=== PATIENT | male | born 1955 | race Caucasian/White ===

== ENCOUNTER 2017-03-25 03:35 | Inpatient (IN) ==
[2017-03-20 11:21] LABS: MANUAL DIFF NEEDED? NO; URINE MICRO REVIEW NEEDED? NO; URINE SOURCE CLEAN CATCH
[2017-03-20 11:30] LABS: BASO% 0.4 % (0.0-0.8); EOS# 0.22 X1000 (0.0-0.7); EOS% 2.4 % (0.0-10.0); HEMOGLOBIN 14.3 g/dL (14.0-18.0); IMM GRAN# 0.04 X1000 (0.0-0.04); IMM GRAN% 0.4 % (0.0-0.5); LYMPH% 21.6 % (20.5-51.1); MCH 29.5 PG (27-31); MCHC 32.5 g/dL (33-37); MCV 90.9 FL (81-99); MONO# 0.72 X1000 (0.11-0.59); MONO% 7.8 % (1.7-9.3); MPV 11.8 FL (7.4-10.4); NEUT% 67.4 % (42.2-75.2); PLT 229 X1000 (130-400); RBC 4.84 XMIL (4.7-6.1)
[2017-03-20 11:38] LABS: BILIRUBIN URINE NEGATIVE (NEGATIVE); BLOOD URINE NEGATIVE (NEGATIVE); COLOR YELLOW; GLUCOSE URINE 500 mg/dL (NEGATIVE); LEUKOCYTES URINE NEGATIVE (NEGATIVE); NITRITE URINE NEGATIVE (NEGATIVE); PH URINE 5.5; PROTEIN URINE TRACE mg/dL (NEGATIVE); SP GRAVITY URINE 1.024; TURBIDITY URINE CLEAR (CLEAR); UROBILINOGEN URINE NORMAL (NORMAL)
[2017-03-20 11:39] LABS: INR 0.98; PROTIME 10.3 Seconds (9.2-11.7); PTT 26.1 Seconds (22.0-36.0); UR EPITHELIAL CELLS <10 /HPF (<10); URINE BACTERIA NEGATIVE /HPF; URINE RBC <10 /HPF (<10); URINE WBC <10 /HPF (<10)
[2017-03-20 11:41] LABS: AGAP 10; BUN 13 mg/dL (8-22); CALCIUM 8.8 mg/dL (8.8-10.2); CHLORIDE 100 mmol/L (98-107); COSMO 285; POTASSIUM 4.6 mmol/L (3.5-5.1); SODIUM 140 mmol/L (136-145); TCO2 30 mmol/L (25-35)
[2017-03-25] MEDS ORDERED: SODIUM CHLORIDE 0.9% ONE (06:47)
[2017-03-25] MEDS ORDERED: TORADOL ONE (06:47)
[2017-03-25] MEDS ORDERED: DURAMORPH ONE (06:47)
[2017-03-25] MEDS ORDERED: NEOSPORIN G.U. IRRIGANT ONE (06:48)
[2017-03-25] MEDS ORDERED: EXPAREL 1.3% ONE (06:48)
[2017-03-25] MEDS ORDERED: MARCAINE 0.25% PF ONE (06:52)
[2017-03-25] MEDS ORDERED: REGLAN ONE (07:14)
[2017-03-25] MEDS ORDERED: PEPCID ONE (07:14)
[2017-03-25] MEDS ORDERED: COLACE ONE (07:14)
[2017-03-25] MEDS ORDERED: LYRICA ONE (07:14)
[2017-03-25] MEDS ORDERED: LR 1,000 ML ONE (07:14)
[2017-03-25] MEDS ORDERED: CELEBREX ONE (07:14)
[2017-03-25] MEDS ORDERED: KEFZOL 2 GM/D5W 2 GM/50 ML IVPB ONE (07:15)
[2017-03-25] MEDS ORDERED: DIPRIVAN 1% 500 MG/50 ML BOTTLE ONE (08:42)
[2017-03-25] MEDS ORDERED: VERSED ONE (08:45)
[2017-03-25] MEDS ORDERED: FENTANYL ONE (08:46)
[2017-03-25] MEDS ORDERED: CYKLOKAPRON 1,000 MG/NS 1,000 MG/100 ML IVPB ONE (09:09)
[2017-03-25] MEDS ORDERED: XYLOCAINE-MPF 2% ONE (09:42)
[2017-03-25] MEDS ORDERED: BENADRYL ONE (10:04)
[2017-03-25 10:24] LABS: URINE MICRO REVIEW NEEDED? NO; URINE SOURCE CATH
[2017-03-25] MEDS ORDERED: DECADRON ONE (10:30)
[2017-03-25] MEDS ORDERED: ZOFRAN ONE (10:30)
[2017-03-25] MEDS ORDERED: OFIRMEV 1000 MG/ISOTONIC SOLN 1,000 MG/100 ML BOTTLE ONE (10:32)
[2017-03-25 10:33] LABS: BILIRUBIN URINE NEGATIVE (NEGATIVE); BLOOD URINE NEGATIVE (NEGATIVE); COLOR YELLOW; GLUCOSE URINE TRACE mg/dL (NEGATIVE); LEUKOCYTES URINE NEGATIVE (NEGATIVE); NITRITE URINE NEGATIVE (NEGATIVE); PH URINE 5.5; PROTEIN URINE NEGATIVE (NEGATIVE); SP GRAVITY URINE 1.021; TURBIDITY URINE CLEAR (CLEAR); UROBILINOGEN URINE NORMAL (NORMAL)
[2017-03-25 10:35] LABS: UR EPITHELIAL CELLS <10 /HPF (<10); URINE BACTERIA NEGATIVE /HPF; URINE RBC <10 /HPF (<10); URINE WBC <10 /HPF (<10)
[2017-03-25] MEDS ORDERED: NS 1,000 ML ONE (11:58)
[2017-03-25] MEDS: DILAUDID ONE ×4 (14:15→15:00)
[2017-03-25] MEDS ORDERED: DILAUDID ONE (15:15)
[2017-03-25] MEDS ORDERED: MILK OF MAGNESIA PO PRN (15:30)
[2017-03-25] MEDS ORDERED: AMBIEN PO PRN (15:30)
[2017-03-25] MEDS ORDERED: ZOFRAN IV PRN (15:30)
[2017-03-25] MEDS ORDERED: CYKLOKAPRON 1,000 MG in NS 100 ML IV ONE ×2 (15:47→16:00)
[2017-03-25] MEDS: ULTRAM PO SCH (16:22)
[2017-03-25] MEDS: TYLENOL PO SCH ×2 (16:22→22:24)
[2017-03-25] MEDS: MORPHINE IV PRN ×3 (16:59→21:06)
[2017-03-25] MEDS: NS 1,000 ML IV SCH (17:06)
[2017-03-25] MEDS: KEFZOL 2 GM/D5W 2 GM/50 ML IVPB IV SCH (17:07)
[2017-03-25] MEDS: NEURONTIN PO SCH (17:11)
[2017-03-25] MEDS: HUMALOG SUBQ SCH (17:11)
[2017-03-25] MEDS: APRESOLINE PO SCH (17:11)
[2017-03-25] MEDS: OXY IR PO PRN ×2 (19:23→22:26)
[2017-03-25] MEDS ORDERED: REQUIP PO SCH (21:00)
[2017-03-25] MEDS: COREG PO SCH (21:07)
[2017-03-25] MEDS: LOTENSIN PO SCH (21:07)
[2017-03-25] MEDS: CELEBREX PO SCH (21:07)
[2017-03-25] MEDS: LYRICA PO SCH (21:07)
[2017-03-25] MEDS: GLUCOPHAGE XR PO SCH (21:07)
[2017-03-25] MEDS: COLACE PO SCH (21:07)
[2017-03-26] MEDS: KEFZOL 2 GM/D5W 2 GM/50 ML IVPB IV SCH (01:15)
[2017-03-26] MEDS: MORPHINE IV PRN (01:45)
[2017-03-26] MEDS: ULTRAM PO SCH ×3 (03:55→10:31)
[2017-03-26] MEDS: TYLENOL PO SCH ×3 (04:24→10:27)
[2017-03-26 06:26] LABS: AGAP 11; BUN 17 mg/dL (8-22); CALCIUM 8.7 mg/dL (8.8-10.2); CHLORIDE 98 mmol/L (98-107); COSMO 283; SODIUM 137 mmol/L (136-145); TCO2 28 mmol/L (25-35)
[2017-03-26] MEDS: OXY IR PO PRN ×2 (06:46→09:07)
[2017-03-26] MEDS: NS 1,000 ML IV SCH ×2 (06:47→06:53)
[2017-03-26] MEDS ORDERED: SYNTHROID PO SCH (07:00)
[2017-03-26] MEDS: HUMALOG SUBQ SCH (07:33)
[2017-03-26] MEDS: LYRICA PO SCH ×2 (07:46→08:25)
[2017-03-26] MEDS: NEXIUM PO SCH ×2 (07:46→08:24)
[2017-03-26] MEDS: PERIDEX MT SCH ×2 (07:46→08:23)
[2017-03-26] MEDS: DECADRON IV ONE ×2 (07:47→08:27)
[2017-03-26] MEDS: NORVASC PO SCH ×2 (07:47→08:24)
[2017-03-26] MEDS: LOTENSIN PO SCH ×2 (07:47→08:23)
[2017-03-26] MEDS: JANUVIA PO SCH ×2 (07:48→08:25)
[2017-03-26] MEDS: CELEBREX PO SCH ×2 (07:49→08:20)
[2017-03-26] MEDS: COREG PO SCH ×2 (07:49→08:20)
[2017-03-26] MEDS: GLUCOPHAGE XR PO SCH ×2 (07:49→08:27)
[2017-03-26] MEDS: ASPIRIN EC PO SCH ×2 (07:49→08:19)
[2017-03-26] MEDS: MAXZIDE-25 PO SCH ×2 (07:49→08:24)
[2017-03-26] MEDS: ZYLOPRIM PO SCH ×2 (07:50→08:24)
[2017-03-26] MEDS: NEURONTIN PO SCH ×2 (07:50→08:22)
[2017-03-26] MEDS: COLACE PO SCH ×2 (07:50→08:20)
[2017-03-26] MEDS: LEVEMIR SUBQ SCH ×2 (07:50→08:26)
[2017-03-26] MEDS: APRESOLINE PO SCH ×2 (07:50→08:19)
[2017-03-26] MEDS ORDERED: REQUIP PO SCH (09:00)
[2017-03-26 11:10] VITALS: BP 153/80
== END 2017-03-26 11:24 | disposition home health service (06) ==
LOC: SURHOLD 03:35 → 4N 15:11
PROVIDERS: ADMIT Orthopaedic Surgery; ATTEND Orthopaedic Surgery